=== PATIENT | female | born 1940 | race Caucasian/White ===

== ENCOUNTER 2018-01-27 08:29 | Emergency (ER) | payer MEDICARE ==
[~2018-01-27] VITALS: Ht 165.1 cm; Wt 64.0 kg
[~2018-01-27 08:29] MED LIST: CARB0.5D16 RIGHT EYE; CEFU1TAB43 PO; CENTTAB9 PO; DILA100C PO; DORZO2%O EACH EYE; MEGE40SU PO; OMPR20CCR PO; OS-CTAB3 PO; PHEN100 PO; SERT25TA83 PO; [UNRECOGNIZED DRUG - OTHER] EACH EYE
[2018-01-27 08:43] VITALS: BP 161/67; PULSE 102; RESP 17; TEMP 97.8; O2SAT 97
[2018-01-27] MEDS ORDERED: DILA100C PO (08:55)
[2018-01-27] MEDS ORDERED: GUAI600T11 PO (08:55)
[2018-01-27] MEDS ORDERED: ALPH0.1S EACH EYE (08:55)
[2018-01-27] MEDS ORDERED: ASPI-516 CHEW (08:55)
[2018-01-27] MEDS ORDERED: OMEP20TA93 PO (08:55)
[2018-01-27] MEDS ORDERED: SERT-132 PO (08:55)
[2018-01-27] MEDS ORDERED: ALEN1TAB48 PO (08:55)
[2018-01-27] MEDS ORDERED: MACR100C2 PO (08:55)
[2018-01-27] MEDS ORDERED: MAPA325T PO (08:55)
[2018-01-27] MEDS ORDERED: POLY99.0 RIGHT EYE (08:55)
[2018-01-27] MEDS ORDERED: CERTTAB2 PO (08:55)
[2018-01-27] MEDS ORDERED: IPRAAER INH (08:55)
[2018-01-27] MEDS ORDERED: LUMI0.01 EACH EYE (08:55)
[2018-01-27] MEDS ORDERED: DEXT1LIQ PO (08:55)
[2018-01-27] MEDS ORDERED: ALEV220T14 PO (08:55)
[2018-01-27] MEDS ORDERED: CALCTAB19 PO (08:55)
--- NOTE | 2018-01-27 09:06 | PD ---
HPI Chief Complaint: Fall Time Seen by Provider: 08:43 Travel History International Travel<30 days: No Contact w/Intl Traveler<30days: No Traveled to known affect area: No History of Present Illness HPI This is a 77-year-old female with history of ED, who presents after mechanical fall. Patient had a witnessed trip and fall. She apparently fell back and struck the back of her head. There was reported decreased level of consciousness initially on scene. Patient is now awake and alert and answering questions appropriately. She reports mild discomfort in the back of her head. She denies any other injuries. She does not recall the fall. There are no other complaints at time of examination. PFSH Past Medical History Blood Disorders: No Depression: Yes Cancer: No Cardiovascular Problems: No COPD: Yes Diabetes: No Diminished Hearing: No Endocrine: No Gastrointestinal Disorders: Yes (BOWEL OBSTRUCTION) GERD: Yes Glaucoma: Yes Genitourinary: No Immune Disorder: No Musculoskeletal: No Neurologic: Yes Psychiatric: No Reproductive: Yes Respiratory: Yes (COPD) Seizures: Yes Tetanus Vaccination: > 5 Years Influenza Vaccination: Yes ?: Not Menopausal: Yes : 0 Para: 0 Past Surgical History Abdominal Surgery: Yes (BOWEL RESECTION) Hysterectomy: Yes Tonsillectomy: Yes Other Surgery: Yes (HYSTERECTOMY) Social History Alcohol Use: No Tobacco Use: No (QUIT 20 YEARS AGO) Substance Use: No Allergies-Medications (Allergen,Severity, Reaction): Coded Allergies: No Known Allergies (Verified Adverse Reaction, Unknown, 01/27/18) Reported Meds & Prescriptions Reported Meds & Active Scripts Active Reported Aleve Arthritis (Naproxen Sodium) 220 Mg Tab 220 Mg PO HS Sertraline (Sertraline HCl) 50 Mg Tab 50 Mg PO DAILY Robafen Dm Cgh-Chest Reymundo Syrp (Guaifenesin/Dextromethorphan) 100 Mg-10 Mg/5 Ml Syrup 5 Ml PO Q4HR PRN Omeprazole 20 Mg Tab 20 Mg PO DAILY Macrobid (Nitrofurantoin Monohydrate Macrocrystals) 100 Mg Capsule 100 Mg PO BID 7 Days Mucus Relief ER (Guaifenesin) 600 Mg Tab 600 Mg PO HS Lumigan Opth Drops (Bimatoprost) 0.01% Soln 1 Drop EACH EYE HS Dilantin (Phenytoin Extended) 100 Mg Cap 100 Mg PO DAILY Combivent Respimat Inh (Ipratropium-Albuterol Inh) 20-100 Care Home/Act Aero 2 Puff INH BID Certavite/Antioxidants (Multiple Vitamins W/ Minerals) 18 Mg Iron-400 Mcg Tab PO DAILY Calcium 600+D 200 (Calcium Carbonate-Vitamin D) 600-200 Mg-Unit Tab 1 Tab PO DAILY Aspirin 81 Mg Chew 81 Mg CHEW DAILY Artificial Tears Opth Drops (Polyvinyl Alcohol) 1.4% Soln 1-2 Drop RIGHT EYE QID PRN Alphagan P Opth Drops (Brimonidine Tartrate) 0.1% Soln 1 Drop EACH EYE BID Alendronate (Alendronate Sodium) 70 Mg Tab 70 Mg PO Q7D Mapap (Acetaminophen) 325 Mg Tab 325 Mg PO TID PRN Review of Systems Except as stated in HPI: all other systems reviewed are Neg General / Constitutional: No: Fever, Chills Eyes: No: Blurred Vision, Photophobia HENT: Positive: Headaches (Left posterior occipital), No: Neck Pain Cardiovascular: No: Chest Pain or Discomfort, Palpitations Respiratory: No: Cough, Shortness of Breath Gastrointestinal: No: Nausea, Vomiting, Abdominal Pain Genitourinary: No: Frequency, Dysuria Musculoskeletal: No: Weakness, Pain Neurologic: Positive: Headache, Change in Mentation (Initially with decreased level of consciousness. EMT paramedics report GCS of 14 when they arrived it is now 15.), No: Weakness, Dizziness Physical Exam Narrative GENERAL: Well-developed well-nourished female in c-collar mobilization. SKIN: Focused skin assessment warm/dry. HEAD: Normocephalic. There is a hematoma to the left posterior occiput. No depression and skull. EYES: No scleral icterus. No injection or drainage. ENT: No nasal bleeding or discharge. Mucous membranes pink and moist. NECK: Trachea midline. In c-collar mobilization. CARDIOVASCULAR: Regular rate and rhythm. No murmur appreciated. RESPIRATORY: No accessory muscle use. Clear to auscultation. Breath sounds equal bilaterally. GASTROINTESTINAL: Abdomen soft, non-tender, nondistended. Hepatic and splenic margins not palpable. MUSCULOSKELETAL: No obvious deformities. No clubbing. No cyanosis. No edema. NEUROLOGICAL: Awake and alert. No obvious cranial nerve deficits. Motor grossly within normal limits. Normal speech. PSYCHIATRIC: Appropriate mood and affect; insight and judgment normal. Data Data Last Documented VS Vital Signs Date Time Temp Pulse Resp B/P (MAP) Pulse Ox O2 Delivery O2 Flow Rate FiO2 01/27/18 11:00 97.8 98 17 150/67 (94) 99 01/27/18 09:25 Room Air Orders Orders Ct Brain W/O Iv Contrast(Rout) (01/27/18 08:43) Ct Cerv Spine W/O Contrast (01/27/18 08:43) Urinalysis - C+S If Indicated (01/27/18 08:43) Complete Blood Count With Diff (01/27/18 08:54) Basic Metabolic Panel (Bmp) (01/27/18 08:54) Iv Access Insert/Monitor (01/27/18 08:54) Ecg Monitoring (01/27/18 08:54) Oximetry (01/27/18 08:54) Phenytoin (Dilantin) (01/27/18 08:54) Electrocardiogram (01/27/18 ) Labs Laboratory Tests Test 01/27/18 09:15 01/27/18 10:00 White Blood Count 11.7 TH/MM3 Red Blood Count 5.46 MIL/MM3 Hemoglobin 13.7 GM/DL Hematocrit 42.5 % Mean Corpuscular Volume 77.8 FL Mean Corpuscular Hemoglobin 25.2 PG Mean Corpuscular Hemoglobin Concent 32.4 % Red Cell Distribution Width 16.6 % Platelet Count 187 TH/MM3 Mean Platelet Volume 7.9 FL Neutrophils (%) (Auto) 81.7 % Lymphocytes (%) (Auto) 10.7 % Monocytes (%) (Auto) 6.1 % Eosinophils (%) (Auto) 0.9 % Basophils (%) (Auto) 0.6 % Neutrophils # (Auto) 9.6 TH/MM3 Lymphocytes # (Auto) 1.3 TH/MM3 Monocytes # (Auto) 0.7 TH/MM3 Eosinophils # (Auto) 0.1 TH/MM3 Basophils # (Auto) 0.1 TH/MM3 CBC Comment DIFF FINAL Differential Comment Blood Urea Nitrogen 15 MG/DL Creatinine 0.68 MG/DL Random Glucose 119 MG/DL Calcium Level 9.1 MG/DL Sodium Level 136 MEQ/L Potassium Level 4.6 MEQ/L Chloride Level 99 MEQ/L Carbon Dioxide Level 29.7 MEQ/L Anion Gap 7 MEQ/L Estimat Glomerular Filtration Rate 84 ML/MIN Phenytoin (Dilantin) Level 14.3 MCG/ML Urine Color LIGHT-YELLOW Urine Turbidity CLEAR Urine pH 7.0 Urine Specific [place] 1.011 Urine Protein NEG mg/dL Urine Glucose (UA) NEG mg/dL Urine Ketones NEG mg/dL Urine Occult Blood NEG Urine Nitrite NEG Urine Bilirubin NEG Urine Urobilinogen LESS THAN 2.0 MG/DL Urine Leukocyte Esterase NEG Urine RBC LESS THAN 1 /hpf Urine WBC LESS THAN 1 /hpf Urine Amorphous Sediment OCC Urine Hyaline Casts 2 /lpf Microscopic Urinalysis Comment CATH-CULT NOT IND MDM Medical Decision Making Medical Screen Exam Complete: Yes Emergency Medical Condition: Yes Differential Diagnosis Scalp contusion versus intracranial injury versus metabolic derangement versus UTI Narrative Course 77-year-old female presents from the nursing after mechanical fall. Patient had a witnessed fall. There was questionable loss of consciousness. Patient is awake alert and appropriate here. She does have a hematoma to the scalp on her left posterior occipital area. CT brain and cervical spine are negative for acute process. Labs are within normal limits including her Dilantin level. Urinalysis shows no evidence of acute urinary tract infection. The patient will be discharged back to the nursing facility. Diagnosis Primary Impression: Mechanical fall Additional Impression: Blunt head trauma Additional Instructions: Ice 2-3 times daily to the posterior scalp 2-3 days. Disposition: 03 DISCHARGE TO SNF Condition: Stable Nirav Perry MD Jan 27, 2018 09:06
[2018-01-27 09:25] VITALS: RESP 17; O2SAT 97
[2018-01-27 09:47] LABS: AUTOMATED NEUTROPHIL # 9.6 TH/MM3 (1.8-7.7); BASOPHIL # 0.1 TH/MM3 (0-0.2); BASOPHIL % 0.6 % (0.0-2.0); EOSINOPHIL # 0.1 TH/MM3 (0-0.4); EOSINOPHIL % 0.9 % (0.0-4.0); HEMATOCRIT 42.5 % (35.0-46.0); HEMOGLOBIN 13.7 GM/DL (11.6-15.3); LYMPH % 10.7 % (9.0-44.0); LYMPHOCYTE # 1.3 TH/MM3 (1.0-4.8); MEAN CELL VOLUME 77.8 FL (80.0-100.0); MEAN CORPUSCULAR HEMOGLOBIN 25.2 PG (27.0-34.0); MEAN CORPUSCULAR HGB CONC 32.4 % (32.0-36.0); MEAN PLATELET VOLUME 7.9 FL (7.0-11.0); MONO % 6.1 % (0.0-8.0); MONOCYTE # 0.7 TH/MM3 (0-0.9); NEUT % 81.7 % (16.0-70.0); PLATELET COUNT 187 TH/MM3 (150-450); RED BLOOD COUNT 5.46 MIL/MM3 (4.00-5.30); RED CELL DISTRIBUTION WIDTH 16.6 % (11.6-17.2); WHITE BLOOD COUNT 11.7 TH/MM3 (4.0-11.0)
[2018-01-27 10:04] LABS: PHENYTOIN (DILANTIN) 14.3 MCG/ML (10.0-20.0)
[2018-01-27 10:12] LABS: BICARBONATE 29.7 MEQ/L (21.0-32.0); CALCIUM 9.1 MG/DL (8.5-10.1); CREATININE 0.68 MG/DL (0.50-1.00)
--- NOTE | 2018-01-27 10:14 | RADRPT ---
EXAM DATE: 01/27/2018 10:07 AM EDT AGE/SEX: 77 years / Female INDICATIONS: Patient fell CLINICAL DATA: This is the patient's initial encounter. Patient reports that signs and symptoms have been present for 1 day and indicates a pain score of 0/10. MEDICAL/SURGICAL HISTORY: Chronic obstructive pulmonary disease. Gastroesophageal reflux disea se. Colon resection. Hysterectomy. RADIATION DOSE: 15.09 CTDI (mGy) COMPARISON: No prior exams available for comparison. TECHNIQUE: Contiguous axial images were obtained using helical multirow detector technique. The vol umetric data was post-processed with multiplanar reconstruction in oblique axial, sagittal, and coron al planes. Using automated exposure control and adjustment of the mA and/or kV according to patient s ize, radiation dose was kept as low as reasonably achievable to obtain optimal diagnostic quality justina ges. FINDINGS: Vertebrae: Normal vertebral body height. Mild degenerative changes lower cervical spine. Alignment: Normal. No subluxation. C2-3: The bony spinal canal is normal in size. No evidence of disc bulge or herniation. The neural foramina are bilaterally patent. C3-4: Minimal facet disease on the left with minimal neural foraminal encroachment. C4-5: The moderate bilateral neural foraminal encroachment with moderate facet disease. No significa nt spinal stenosis. C5-6: Bilateral neural foraminal encroachment with moderate uncinate ridging. Mild spinal stenosis. C6-7: Moderate uncinate ridging with bilateral neural foraminal encroachment. Minimal spinal stenosi s. C7-T1: The bony spinal canal is normal in size. No evidence of disc bulge or herniation. The neura l foramina are bilaterally patent. CONCLUSION: 1. Degenerative disc disease without fracture. Spinal stenosis is worse at C5-C6. 2. Lung apex clear. Electronically signed by: Negrito Palmer MD 01/27/2018 10:13 AM EDT
--- NOTE | 2018-01-27 10:15 | RADRPT ---
EXAM DATE: 01/27/2018 10:03 AM EDT AGE/SEX: 77 years / Female INDICATIONS: Patient fell CLINICAL DATA: This is the patient's initial encounter. Patient reports that signs and symptoms have been present for 1 day and indicates a pain score of 0/10. MEDICAL/SURGICAL HISTORY: Chronic obstructive pulmonary disease. Gastroesophageal reflux disease. Colon resection. Hysterectomy. RADIATION DOSE: 56.36 CTDI (mGy) COMPARISON: No prior exams available for comparison. TECHNIQUE: CT of the head without contrast. Using automated exposure control and adjustment of the mA and/or kV according to patient size, radiation dose was kept as low as reasonably achievable to ob tain optimal diagnostic quality images. FINDINGS: Cerebrum: Atrophy. Periventricular low attenuation change involving both cerebral hemispheres. The v entricles are normal for age. No evidence of midline shift, mass lesion, hemorrhage or acute infarct ion. No extraaxial fluid collections are seen. Posterior Fossa: The cerebellum and brainstem are intact. The 4th ventricle is midline. The cerebe llopontine angle is unremarkable. Extracranial: The visualized portion of the orbits is intact. Skull: The calvaria is intact. No evidence of skull fracture. CONCLUSION: 1. No acute intracranial abnormality. 2. Atrophy and chronic small vessel ischemic change. Electronically signed by: Kenny King MD 01/27/2018 10:14 AM EDT
[2018-01-27 10:23] LABS: AMORPHOUS SEDIMENT, URINE OCC; BILIRUBIN, URINE NEG (NEG); BLOOD, URINE NEG (NEG); GLUCOSE,URINE NEG (NEG); HYALINE CAST, URINE 2 /lpf (RARE); KETONE, URINE NEG (NEG); NITRITE,URINE NEG (NEG); URINE COLOR LIGHT-YELLOW (YELLW/STRAW); URINE LEUKOCYTE ESTERASE NEG (NEG)
[2018-01-27 11:00] VITALS: BP 150/67; PULSE 98; RESP 17; TEMP 97.8; O2SAT 99
[2018-01-27 13:05] VITALS: BP 143/77; TEMP 97.7
--- NOTE | 2018-01-27 15:00 | EKG ---
Date Performed: 01/27/2018 Time Performed: 08:50:28 PTAGE: 77 years EKG: SINUS TACHYCARDIA WITH FREQUENT VENTRICULAR PREMATURE COMPLEXES WITH OCCASIONAL SUPRAVENTRI CULAR PREMATURE COMPLEXES ABNORMAL RHYTHM ECG Since the PREVIOUS TRACING , no significant change noted PREVIOUS TRACIN02/03/2010 @11.50 DOCTOR: Andres Montenegro Interpretating Date/Time 01/27/2018 14:55:59
== END 2018-01-27 13:05 ==
LOC: NEPC 08:29
DX: S09.90XA Unspecified injury of head, initial encounter (principal); J44.9 Chronic obstructive pulmonary disease, unspecified; K21.9 Gastro-esophageal reflux disease without esophagitis; W01.0XXA Fall on same level from slipping, tripping and stumbling without subsequent striking against object, initial encounter; Z79.899 Other long term (current) drug therapy; Z87.891 Personal history of nicotine dependence
CPT/HCPCS: 70450; 72125; 80048; 80185; 81001; 85025; 93005; 99285